=== PATIENT | male | born 1950 | race Caucasian/White ===

== ENCOUNTER 2020-08-26 17:05 | Inpatient (IN) ==
[2020-08-26] MEDS ORDERED: Levofloxacin 750 MG IVPREMIX 750 MG/150 ML BAG IVPB ONE (17:59)
[2020-08-26] MEDS ORDERED: Aztreonam 2 GM in NS 0.9% 50 ML 50 ML IVPB ONE (17:59)
[2020-08-26] MEDS ORDERED: NS 0.9% 1000 ml BAG 1,000 ML IV.FLUID IV ONE (17:59)
[2020-08-26] MEDS ORDERED: Albuterol HFA INHALER 8 gm MDI INH ONE (18:03)
[2020-08-26 18:28] LABS: ABS Eosinophils 0.2 10^3/ul (0-0.6); ABS Lymphocytes 2.1 10^3/ul (1.0-4.8); ABS Monocytes 1.4 10^3/ul (0-0.8); ABS Neutrophils 10.8 10^3/ul (1.5-7.7); Eosinophil % 1.1 %; Hematocrit 49 % (42-52); Hemoglobin 16.6 g/dL (14.0-18.0); Lymphocyte % 14.7 %; Mean Corpuscular HGB Conc 34 g/dL (31-36); Mean Corpuscular Hemoglobin 32 pg (27-31); Mean Corpuscular Volume 93 fL (80-94); Mean Platelet Volume 9.4 fL (7.4-10.4); Platelet Count 150 10^3/uL (150-450); Red Blood Count 5.26 10^6 /uL (4.18-5.48); Red Cell Distribution Width 14 % (10-15); White Blood Count 14.6 10^3/uL (3.5-10.8)
[2020-08-26 18:42] LABS: Influenza A Molecular Negative (Negative); Influenza B Molecular Negative (Negative)
[2020-08-26 18:45] LABS: ALT 20 U/L (7-52); AST 15 U/L (13-39); Albumin 4.3 g/dL (3.2-5.2); Albumin/Globulin Ratio 1.1 (1-3); Alkaline Phosphatase 66 U/L (34-104); Anion Gap 11 mmol/L (2-11); BUN/Creatinine Ratio 12.4 (8-20); Blood Urea Nitrogen 17 mg/dL (6-24); C Reactive Protein 44.92 mg/L (<8.01); CO2 Carbon Dioxide 25 mmol/L (22-32); Calcium 8.9 mg/dL (8.6-10.3); Chloride 99 mmol/L (101-111); EGFR African American 62.2 (>60); EGFR Non-African American 51.4 (>60); Globulin 3.8 g/dL (2-4); Glucose 328 mg/dL (70-100); Sodium 135 mmol/L (135-145); Total Protein 8.1 g/dL (6.4-8.9)
[2020-08-26 18:49] LABS: Troponin I 0.04 ng/mL (<0.03)
[2020-08-26 19:08] LABS: Fibrinogen 368.5 mg/dL (110.8-404.3)
[2020-08-26 19:09] LABS: Activated Partial Thrombo Time 29.4 seconds (26.0-38.0); INR 1.19 (0.82-1.09)
[2020-08-26 19:48] LABS: Erythrocyte Sed Rate 10 mm/Hr (0-19)
[2020-08-26] MEDS ORDERED: Iodixanol (CONTRAST) 320 MG/ML 100 ML SDV IV ONE (19:53)
[2020-08-26] MEDS ORDERED: Heparin DRIP 25,000 UNITS BAG 25,000 UNITS/500 ML BAG IV SCH (20:30)
[2020-08-26] MEDS ORDERED: Ondansetron 4 mg VIAL 2 MG/ML 2 ml VIAL IV ONE (20:53)
[2020-08-26] MEDS ORDERED: Ondansetron 4 mg VIAL 2 MG/ML 2 ml VIAL ONE (20:54)
[2020-08-26] MEDS ORDERED: Heparin 5000 UNITS/ML 1 mL VIAL IV SCH (21:00)
[2020-08-26 21:26] LABS: Urine Appearance Cloudy; Urine Bilirubin Negative (Negative); Urine Blood Negative (Negative); Urine Color Yellow; Urine Glucose 3+(>=500 mg/dL) (Negative); Urine Ketones Trace (Negative); Urine Nitrite Negative (Negative); Urine Protein 1+(30 mg/dL) (Negative); Urine Specific Gravity 1.036 (1.010-1.030); Urine Urobilinogen Negative (Negative)
[2020-08-26 21:29] LABS: Urine Bacteria Absent (Absent); Urine Red Blood Cell Trace(0-2/hpf) (Absent); Urine Squamous Epithelial Cell Present (Absent); Urine White Blood Cell Trace(0-5/hpf) (Absent)
[2020-08-26 21:47] LABS: EGFR African American 72.4 (>60); EGFR Non-African American 59.9 (>60)
[2020-08-26] MEDS ORDERED: Alteplase (100 mg Vial) 100 MG in Premix IV 100 ML IV ONE (23:45)
[2020-08-27] MEDS ORDERED: Dextrose 50% Syringe 50 ml 25 GM/50 ML SYRINGE IV PUSH PRN (00:29)
[2020-08-27 03:42] LABS: Hematocrit 43 % (42-52); Hemoglobin 14.4 g/dL (14.0-18.0); Mean Corpuscular HGB Conc 34 g/dL (31-36); Mean Corpuscular Hemoglobin 32 pg (27-31); Mean Corpuscular Volume 94 fL (80-94); Mean Platelet Volume 9.3 fL (7.4-10.4); Platelet Count 124 10^3/uL (150-450); Red Blood Count 4.56 10^6 /uL (4.18-5.48); Red Cell Distribution Width 14 % (10-15); White Blood Count 14.3 10^3/uL (3.5-10.8)
[2020-08-27 03:46] LABS: ABS Basophils 0.1 10^3/ul (0-0.2); ABS Lymphocytes 2.2 10^3/ul (1.0-4.8); ABS Monocytes 1.6 10^3/ul (0-0.8); ABS Neutrophils 10.3 10^3/ul (1.5-7.7); Eosinophil % 0.1 %; Lymphocyte % 15.7 %
[2020-08-27 03:51] LABS: Activated Partial Thrombo Time 46.1 seconds (26.0-38.0); INR 1.37 (0.82-1.09)
[2020-08-27 03:58] LABS: Anion Gap 7 mmol/L (2-11); BUN/Creatinine Ratio 13.4 (8-20); Blood Urea Nitrogen 16 mg/dL (6-24); CO2 Carbon Dioxide 22 mmol/L (22-32); Calcium 7.8 mg/dL (8.6-10.3); Chloride 106 mmol/L (101-111); EGFR African American 73.1 (>60); EGFR Non-African American 60.4 (>60); Glucose 248 mg/dL (70-100); Magnesium 1.9 mg/dL (1.9-2.7); Potassium 4.5 mmol/L (3.5-5.0); Sodium 135 mmol/L (135-145)
[2020-08-27] MEDS ORDERED: Magnesium Sulfate IV 1GM/100ML 1 GM/100 ML BAG IV ONE (04:08)
[2020-08-27] MEDS: Heparin DRIP 25,000 UNITS BAG 25,000 UNITS/500 ML BAG IV SCH (04:30)
[2020-08-27 06:25] LABS: Troponin I 0.04 ng/mL (<0.03)
[2020-08-27 09:07] LABS: Glucose Confirmatory 725 mg/dL (70-100)
[2020-08-27] MEDS: Multivitamins/Minerals TAB PO SCH (09:48)
[2020-08-27] MEDS ORDERED: Perflutren Lipid Microsphere 3 ML VIAL ONE (10:51)
[2020-08-27] MEDS: Heparin 5000 UNITS/ML 1 mL VIAL IV SCH (17:52)
[2020-08-28] MEDS: Heparin DRIP 25,000 UNITS BAG 25,000 UNITS/500 ML BAG IV SCH (05:28)
[2020-08-28 05:47] LABS: ABS Basophils 0.1 10^3/ul (0-0.2); ABS Eosinophils 0.4 10^3/ul (0-0.6); ABS Lymphocytes 3.1 10^3/ul (1.0-4.8); ABS Monocytes 1.2 10^3/ul (0-0.8); ABS Neutrophils 6.8 10^3/ul (1.5-7.7); Eosinophil % 3.1 %; Hematocrit 39 % (42-52); Hemoglobin 13.4 g/dL (14.0-18.0); Mean Corpuscular HGB Conc 34 g/dL (31-36); Mean Corpuscular Hemoglobin 32 pg (27-31); Mean Corpuscular Volume 93 fL (80-94); Platelet Count 142 10^3/uL (150-450); Red Blood Count 4.22 10^6 /uL (4.18-5.48); Red Cell Distribution Width 14 % (10-15); White Blood Count 11.6 10^3/uL (3.5-10.8)
[2020-08-28 06:04] LABS: BUN/Creatinine Ratio 12.9 (8-20); EGFR African American 75.3 (>60); EGFR Non-African American 62.2 (>60); Potassium 4.1 mmol/L (3.5-5.0)
[2020-08-28] MEDS: Heparin 5000 UNITS/ML 1 mL VIAL IV SCH ×2 (07:30→15:34)
[2020-08-28] MEDS: Multivitamins/Minerals TAB PO SCH (08:12)
[2020-08-28] MEDS: Senna TAB 8.6 mg TAB PO PRN (21:43)
[2020-08-29 05:52] LABS: ABS Eosinophils 0.3 10^3/ul (0-0.6); ABS Lymphocytes 2.4 10^3/ul (1.0-4.8); ABS Monocytes 1.2 10^3/ul (0-0.8); ABS Neutrophils 6.2 10^3/ul (1.5-7.7); Eosinophil % 3.3 %; Hematocrit 41 % (42-52); Hemoglobin 13.7 g/dL (14.0-18.0); Lymphocyte % 23.5 %; Mean Corpuscular HGB Conc 34 g/dL (31-36); Mean Corpuscular Hemoglobin 31 pg (27-31); Mean Corpuscular Volume 94 fL (80-94); Platelet Count 174 10^3/uL (150-450); Red Blood Count 4.36 10^6 /uL (4.18-5.48); Red Cell Distribution Width 14 % (10-15); White Blood Count 10.2 10^3/uL (3.5-10.8)
[2020-08-29 06:11] LABS: BUN/Creatinine Ratio 12.1 (8-20); Calcium 8.3 mg/dL (8.6-10.3); EGFR African American 82.7 (>60); EGFR Non-African American 68.3 (>60); Potassium 3.9 mmol/L (3.5-5.0)
[2020-08-29] MEDS: Multivitamins/Minerals TAB PO SCH (08:15)
[2020-08-29] MEDS ORDERED: oxyCODONE/Acetamin 5/325 mg TAB PO PRN (20:40)
[2020-08-29] MEDS: Senna TAB 8.6 mg TAB PO PRN (22:54)
[2020-08-30] MEDS ORDERED: Magnesium Hydroxide LIQ 30 ML UDC PO PRN (08:32)
[2020-08-30] MEDS: Multivitamins/Minerals TAB PO SCH (08:48)
[2020-08-31 05:59] LABS: ABS Basophils 0.1 10^3/ul (0-0.2); ABS Eosinophils 0.4 10^3/ul (0-0.6); ABS Lymphocytes 2.6 10^3/ul (1.0-4.8); ABS Monocytes 1.3 10^3/ul (0-0.8); ABS Neutrophils 6.8 10^3/ul (1.5-7.7); Eosinophil % 3.3 %; Hematocrit 42 % (42-52); Hemoglobin 13.9 g/dL (14.0-18.0); Lymphocyte % 23.2 %; Mean Corpuscular HGB Conc 33 g/dL (31-36); Mean Corpuscular Hemoglobin 31 pg (27-31); Mean Corpuscular Volume 93 fL (80-94); Mean Platelet Volume 8.8 fL (7.4-10.4); Platelet Count 231 10^3/uL (150-450); Red Cell Distribution Width 14 % (10-15)
[2020-08-31 08:11] LABS: Calcium 8.3 mg/dL (8.6-10.3); Potassium 4.2 mmol/L (3.5-5.0)
[2020-08-31 08:16] LABS: BUN/Creatinine Ratio 14.7 (8-20); EGFR African American 75.3 (>60); EGFR Non-African American 62.2 (>60)
[2020-08-31] MEDS: Multivitamins/Minerals TAB PO SCH (09:34)
[2020-08-31 11:30] VITALS: BP 116/62
== END 2020-08-31 15:35 | disposition home health service (06) | DRG 176 ==
LOC: ED 17:05 → ICU 22:35 → MEDTELE 08-28 19:10
PROVIDERS: ADMIT Student in an Organized Health Care Education/Training Program; ATTEND Internal Medicine

== ENCOUNTER 2021-09-03 10:10 | Inpatient (IN) ==
[2021-09-03] MEDS ORDERED: NS 0.9% 1000 ml BAG 1,000 ML IV ONE ×2 (10:15→11:55)
[2021-09-03 11:17] LABS: Hematocrit 49 % (42-52); Hemoglobin 16.7 g/dL (14.0-18.0); Mean Corpuscular HGB Conc 34 g/dL (31-36); Mean Corpuscular Hemoglobin 31 pg (27-31); Mean Corpuscular Volume 91 fL (80-94); Mean Platelet Volume 9.6 fL (7.4-10.4); Platelet Count 120 10^3/uL (150-450); Red Blood Count 5.33 10^6 /uL (4.18-5.48); Red Cell Distribution Width 15 % (10-15); White Blood Count 17.1 10^3/uL (3.5-10.8)
[2021-09-03 11:36] LABS: Calcium 9.5 mg/dL (8.6-10.3); Magnesium 1.7 mg/dL (1.9-2.7); Potassium 4.4 mmol/L (3.5-5.0); eGFR CKD-EPI 51.1 (>60)
[2021-09-03] MEDS ORDERED: Gentamicin ADULT 160 MG in NS 0.9% 100 ml BAG 100 ML IVPB ONE (12:10)
[2021-09-03] MEDS ORDERED: Magnesium Sulfate 2 gm BAG 2 GM/50 ML BAG IVPB ONE (12:10)
[2021-09-03 12:28] LABS: ABS Lymphocytes 0.7 10^3/ul (1.0-4.8); ABS Monocytes 1.7 10^3/ul (0-0.8); ABS Neutrophils 14.6 10^3/ul (1.5-7.7)
[2021-09-03 13:24] LABS: Urine Appearance Turbid; Urine Bilirubin Negative (Negative); Urine Blood 2+ (Negative); Urine Color Amber; Urine Glucose 2+(150 mg/dL) (Negative); Urine Ketones 1+ (Negative); Urine Nitrite Positive (Negative); Urine Protein 3+(>=500 mg/dL) (Negative); Urine Specific Gravity 1.013 (1.002-1.030); Urine Urobilinogen Negative (Negative)
[2021-09-03 13:28] LABS: Urine Bacteria Absent (Absent); Urine Red Blood Cell 3+(>10/hpf) (Absent); Urine White Blood Cell 3+(>20/hpf) (Absent)
[2021-09-03] MEDS ORDERED: Dextrose 50% Syringe 50 ml 25 GM/50 ML SYRINGE IV PUSH PRN (14:22)
[2021-09-03] MEDS ORDERED: Vancomycin 1,500 MG in NS 0.9% 250 ml 250 ML IVPB ONE (15:00)
[2021-09-03] MEDS ORDERED: Vancomycin per Pharmacy 1 EA NOTE FOLLOW UP SCH (15:00)
[2021-09-03] MEDS: NS 0.9% 1000 ml BAG 1,000 ML IV SCH (19:18)
[2021-09-03] MEDS: Ciprofloxacin 400mg IVPREMIX 400 MG/200 ML BAG IVPB SCH (21:32)
[2021-09-04] MEDS: Vancomycin 1000 MG in NS 0.9% 250 ML IVPB SCH ×2 (05:55→18:35)
[2021-09-04] MEDS ORDERED: Vancomycin 1000 MG in NS 0.9% 250 ML IVPB SCH (06:30)
[2021-09-04] MEDS ORDERED: Vancomycin 750 MG in NS 0.9% 250 ML IVPB SCH (06:30)
[2021-09-04 06:55] LABS: Hematocrit 43 % (42-52); Hemoglobin 14.6 g/dL (14.0-18.0); Mean Corpuscular HGB Conc 34 g/dL (31-36); Mean Corpuscular Hemoglobin 31 pg (27-31); Mean Corpuscular Volume 92 fL (80-94); Mean Platelet Volume 9.3 fL (7.4-10.4); Platelet Count 104 10^3/uL (150-450); Red Blood Count 4.65 10^6 /uL (4.18-5.48); Red Cell Distribution Width 15 % (10-15); White Blood Count 11.5 10^3/uL (3.5-10.8)
[2021-09-04 07:02] LABS: Calcium 8.5 mg/dL (8.6-10.3); Potassium 3.9 mmol/L (3.5-5.0); eGFR CKD-EPI 69.5 (>60)
[2021-09-04 08:11] LABS: ABS Eosinophils 0.2 10^3/ul (0-0.6); ABS Lymphocytes 1.9 10^3/ul (1.0-4.8); ABS Monocytes 1.6 10^3/ul (0-0.8); ABS Neutrophils 7.8 10^3/ul (1.5-7.7); Eosinophil % 1.3 %; Lymphocyte % 16.9 %
[2021-09-04 08:22] LABS: C Reactive Protein 79.69 mg/L (<8.01); Magnesium 1.9 mg/dL (1.9-2.7)
[2021-09-04] MEDS: Ciprofloxacin 400mg IVPREMIX 400 MG/200 ML BAG IVPB SCH (08:47)
[2021-09-04] MEDS: NS 0.9% 1000 ml BAG 1,000 ML IV SCH (12:00)
[2021-09-04] MEDS ORDERED: cefTRIAXone 1 gm/50 mL NS BAG 1 GM/50 ML BAG IVPB SCH (17:00)
[2021-09-05] MEDS ORDERED: Vancomycin Trough Check NOTE FOLLOW UP ONE (06:00)
[2021-09-05 06:42] LABS: ABS Basophils 0.1 10^3/ul (0-0.2); ABS Eosinophils 0.5 10^3/ul (0-0.6); ABS Lymphocytes 2.2 10^3/ul (1.0-4.8); ABS Monocytes 1.3 10^3/ul (0-0.8); ABS Neutrophils 5.5 10^3/ul (1.5-7.7); Eosinophil % 5.3 %; Hematocrit 42 % (42-52); Hemoglobin 14.6 g/dL (14.0-18.0); Lymphocyte % 23.3 %; Mean Corpuscular HGB Conc 34 g/dL (31-36); Mean Corpuscular Hemoglobin 31 pg (27-31); Mean Corpuscular Volume 92 fL (80-94); Mean Platelet Volume 9.1 fL (7.4-10.4); Platelet Count 105 10^3/uL (150-450); Red Blood Count 4.63 10^6 /uL (4.18-5.48); Red Cell Distribution Width 15 % (10-15); White Blood Count 9.5 10^3/uL (3.5-10.8)
[2021-09-05 07:03] LABS: C Reactive Protein 46.69 mg/L (<8.01); Calcium 8.6 mg/dL (8.6-10.3); eGFR CKD-EPI 61.6 (>60)
[2021-09-05 11:22] VITALS: BP 107/60
[2021-09-05] MEDS ORDERED: cefTRIAXone 1 gm/50 mL NS BAG 1 GM/50 ML BAG IVPB ONE (11:53)
== END 2021-09-05 13:27 | disposition home or self-care (01) | DRG 872 ==
LOC: ED 10:10 → EDHOLD 14:00 → MED 18:42
PROVIDERS: ADMIT Internal Medicine; ATTEND Hospitalist